=== PATIENT | male | born 1980 | race African-American/Black ===

== ENCOUNTER 2017-07-06 06:09 | Inpatient (IN) | payer OTHER ==
[~2017-07-06] VITALS: Ht 180.3 cm; Wt 106.6 kg
--- NOTE | 2017-07-06 06:30 | RAD ---
CT Head W/O Contrast: History: slurred speech, left arm numbness
code stroke
no previous for comparison Comparison: none Axial images were obtained without contrast. The craven and white matter appears normal and symmetrical for the patients age. There is no mass effect, extraaxial fluid collections or hydrocephalus. There is no gross bleed. There is no focal loss of craven-white matter distinction to suggest acute ischemia, i.e. stroke. Impression: No acute findings. These results were called to the Emergency Department and verified by read back at the time of dictation. PQRS Compliance Statement: One or more of the following individualized dose reduction techniques were utilized for this examination: 1. Automated exposure control 2. Adjustment of the mA and/or kV according to patient size 3. Use of iterative reconstruction technique Electronically signed by: Benjie Tate III, MD (07/06/2017 6:26 AM) [facility]
[2017-07-06 07:02] LABS: BASO # 0.1 x10^3/uL (0.0-0.2); BASO % 1 % (0-3); EOS # 0.1 x10^3/uL (0.0-0.7); EOS % 1 % (0-3); HEMOGLOBIN 13.2 g/dL (13.0-17.5); LYMPH # 1.4 x10^3/uL (1.0-4.8); LYMPH % 23 % (24-48); MEAN CORPUSCULAR HEMOGLOBIN 29 pg (25-35); MEAN CORPUSCULAR HGB CONC 33 g/dL (31-37); MEAN CORPUSCULAR VOLUME 87 fL (79-100); MONO # 0.4 x10^3/uL (0.0-1.1); MONO % 7 % (0-9); NEUT # 4.1 x10^3uL (1.8-7.7); NEUT % 68 % (31-73); PLATELET COUNT 211 x10^3/uL (140-400); RED BLOOD COUNT 4.57 x10^6/uL (4.30-5.70); RED CELL DISTRIBUTION WIDTH 13.6 % (11.5-14.5); WHITE BLOOD COUNT 6.1 x10^3/uL (4.0-11.0)
[2017-07-06 07:22] LABS: ALBUMIN 3.7 g/dL (3.4-5.0); ALBUMIN/GLOBULIN RATIO 0.9 (1.0-1.7); CALCIUM 9.2 mg/dL (8.5-10.1); CREATININE 1.4 mg/dL (0.7-1.3); POTASSIUM 3.3 mmol/L (3.5-5.1); TOTAL BILIRUBIN 0.9 mg/dL (0.2-1.0); TOTAL PROTEIN 7.7 g/dL (6.4-8.2)
[2017-07-06 08:02] LABS: BARBITURATES NEG (NEG); BENZODIAZEPINES NEG (NEG); CANNABINOIDS NEG (NEG); COCAINE NEG (NEG); METHADONE NEG (NEG); OPIATES NEG (NEG); PHENCYCLIDINE NEG (NEG)
[2017-07-06 08:03] LABS: AMPHETAMINE/METHAMPHETAMINE NEG (NEG)
[2017-07-06 08:25] LABS: BACTERIA,URINE 0 /HPF (0-FEW); BILIRUBIN,URINE NEG (NEG); CLARITY,URINE CLEAR; COLOR,URINE STRAW; GLUCOSE,URINE NEG (NEG); NITRITE,URINE NEG (NEG); RBC,URINE 0 /HPF (0-2); SQUAMOUS EPITHELIAL CELL,UR OCC /LPF; UROBILINOGEN,URINE 0.2 mg/dL (0.2 mg/dL); WBC,URINE 0 /HPF (0-4)
--- NOTE | 2017-07-06 08:25 | RAD ---
PA and lateral chest radiograph. History: Chest pressure. Comparison: None. Findings: Cardiomediastinal silhouette is within normal limits for size. Bilateral lung marcos appear clear without evidence of infiltrate, effusion, or pneumothorax. Impression: 1. No acute cardiopulmonary process. Electronically signed by: Hayder Rios MD (07/06/2017 8:22 AM) [place] [id number]
[2017-07-06] MEDS ORDERED: IOHEXOL 300 MG/ML 75 ML VIAL. IV ONE ×2 (08:50→09:20)
--- NOTE | 2017-07-06 09:41 | RAD ---
CTA chest with contrast 07/06/2017 CLINICAL INDICATION: Chest pressure, elevated d-dimer. COMPARISON: Two-view chest 07/06/2017 TECHNIQUE: Multiple CTA images of the chest were obtained following intravenous ministration of 75 mL Omnipaque 300. Additional images were not diagnostic and subsequently additional 75 mL of Omnipaque 300 was injected intravenously MIPS were obtained the chest. *One or more of the following individualized dose reduction techniques were utilized for this examination: 1. Automated exposure control. 2. Adjustment of the mA and/or kV according to patient size. 3. Use of iterative reconstruction technique. FINDINGS: Heart size is normal without significant pericardial effusion. The thoracic aorta is normal in caliber. No central or major segmental pulmonary arterial filling defect to suggest pulmonary embolism. No axillary, mediastinal or hilar lymphadenopathy. The central airways are patent. No pleural effusion, pneumothorax or focal consolidation. There is minimal linear atelectasis or scarring in the superior segment of the right lower lobe. There are no destructive osseous lesions. Limited images of the upper abdomen: Grossly unremarkable. IMPRESSION: No CT evidence of pulmonary embolism. Electronically signed by: Brett Pascal MD (07/06/2017 9:37 AM) [id number]
--- NOTE | 2017-07-06 10:30 | PHYS DOC ---
Past History Past Medical History: Schizophrenia, Other Past Surgical History: No Surgical History Alcohol Use: None Drug Use: None Adult General Chief Complaint Chief Complaint: WEAKNESS/GENERALIZED HPI HPI Patient is a 36 year old M who presents with weakness, slurred speech and numbness. Travis states that prior to going to bed at 2 AM this morning he noticed tingling in his left arm. When he woke up at 5 AM he noticed numbness in his left arm and left leg, moderate weakness in his left arm and left leg, significant difficulty speaking associated with facial droop, and pain behind his right eye. He was immediately brought to the emergency room and his symptoms gradually improved thereafter. He has no history of stroke. His only history is psychiatric. His only medications BuSpar. Review of Systems Review of Systems Constitutional: Denies fever or chills [] Eyes: Denies change in visual acuity, redness, or eye pain [] HENT: Denies nasal congestion or sore throat [] Respiratory: Denies cough or shortness of breath [] Cardiovascular: No additional information not addressed in HPI [] GI: Denies abdominal pain, nausea, vomiting, bloody stools or diarrhea [] : Denies dysuria or hematuria [] Musculoskeletal: Denies back pain or joint pain [] Integument: Denies rash or skin lesions [] Neurologic: Denies headache Endocrine: Denies polyuria or polydipsia [] All other systems were reviewed and found to be within normal limits, except as documented in this note. Family History Family History No pertinent family medical history reported Current Medications Current Medications BuSpar Current Medications Medications (Trade) Dose Ordered Sig/[facility] Start Time Stop Time Status Last Admin Dose Admin Iohexol (Omnipaque 300 Mg/ml) 75 ml 1X ONCE 07/06/17 09:20 07/06/17 09:21 DC Allergies Allergies Allergies Coded Allergies Type Severity Reaction Last Updated Verified No Known Drug Allergies 08/05/13 No Physical Exam Physical Exam Constitutional: Well developed, well nourished, no acute distress, non-toxic appearance. [] HENT: Normocephalic, atraumatic, bilateral external ears normal, oropharynx moist, no oral exudates, nose normal. [] Eyes: EOMI, conjunctiva normal, no discharge. [] Neck: Normal range of motion, no tenderness, supple, no stridor. [] Cardiovascular:Heart rate regular rhythm, no murmur [] Lungs & Thorax: Bilateral breath sounds clear to auscultation [] Abdomen: Bowel sounds normal, soft, no tenderness, no masses, no pulsatile masses. [] Skin: Warm, dry, no erythema, no rash. [] Back: No tenderness, no CVA tenderness. [] Extremities: No tenderness, no cyanosis, no clubbing, ROM intact, no edema. [] Neurologic: Alert and oriented X 3, initial exam revealed sensory deficits in the left upper extremity and lower extremity associated with moderate weakness on the left compared to the right 3/5, minimal facial droop was noted, significant slurred speech was noted. Psychologic: Affect normal, judgement normal, mood normal. [] Current Patient Data Vital Signs Vital Signs Date Time Temp Pulse Resp B/P (MAP) Pulse Ox O2 Delivery O2 Flow Rate FiO2 07/06/17 06:10 98.9 89 20 97 Room Air Lab Results Laboratory Tests Test 07/06/17 06:40 07/06/17 07:35 White Blood Count 6.1 x10^3/uL (4.0-11.0) Red Blood Count 4.57 x10^6/uL (4.30-5.70) Hemoglobin 13.2 g/dL (13.0-17.5) Hematocrit 40.0 % (39.0-53.0) Mean Corpuscular Volume 87 fL (79-100) Mean Corpuscular Hemoglobin 29 pg (25-35) Mean Corpuscular Hemoglobin Concent 33 g/dL (31-37) Red Cell Distribution Width 13.6 % (11.5-14.5) Platelet Count 211 x10^3/uL (140-400) Neutrophils (%) (Auto) 68 % (31-73) Lymphocytes (%) (Auto) 23 % (24-48) L Monocytes (%) (Auto) 7 % (0-9) Eosinophils (%) (Auto) 1 % (0-3) Basophils (%) (Auto) 1 % (0-3) Neutrophils # (Auto) 4.1 x10^3uL (1.8-7.7) Lymphocytes # (Auto) 1.4 x10^3/uL (1.0-4.8) Monocytes # (Auto) 0.4 x10^3/uL (0.0-1.1) Eosinophils # (Auto) 0.1 x10^3/uL (0.0-0.7) Basophils # (Auto) 0.1 x10^3/uL (0.0-0.2) D-Dimer (Ashley) 0.50 mg/L (0.00-0.50) Sodium Level 141 mmol/L (136-145) Potassium Level 3.3 mmol/L (3.5-5.1) L Chloride Level 104 mmol/L (98-107) Carbon Dioxide Level 29 mmol/L (21-32) Anion Gap 8 (6-14) Blood Urea Nitrogen 9 mg/dL (8-26) Creatinine 1.4 mg/dL (0.7-1.3) H Estimated GFR (Cockcroft-Gault) 69.0 BUN/Creatinine Ratio 6 (6-20) Glucose Level 104 mg/dL (70-99) H Calcium Level 9.2 mg/dL (8.5-10.1) Total Bilirubin 0.9 mg/dL (0.2-1.0) Aspartate Amino Transferase (AST) 23 U/L (15-37) Alanine Aminotransferase (ALT) 22 U/L (16-63) Alkaline Phosphatase 67 U/L (46-116) Creatine Kinase 237 U/L (39-308) Creatine Kinase MB (Mass) 0.5 ng/mL (0.0-3.6) Creatine Kinase MB Relative Index 0.2 % (0-4) Troponin I Quantitative < 0.017 ng/mL (0-0.055) Total Protein 7.7 g/dL (6.4-8.2) Albumin 3.7 g/dL (3.4-5.0) Albumin/Globulin Ratio 0.9 (1.0-1.7) L Urine Collection Type Unknown Urine Color Straw Urine Clarity Clear Urine pH 6.5 Urine Specific [place] <=1.005 Urine Protein Neg (NEG-TRACE) Urine Glucose (UA) Neg mg/dL (NEG) Urine Ketones (Stick) Neg mg/dL (NEG) Urine Blood Neg (NEG) Urine Nitrite Neg (NEG) Urine Bilirubin Neg (NEG) Urine Urobilinogen Dipstick 0.2 mg/dL (0.2 mg/dL) Urine Leukocyte Esterase Neg (NEG) Urine RBC 0 /HPF (0-2) Urine WBC 0 /HPF (0-4) Urine Squamous Epithelial Cells Occ /LPF Urine Bacteria 0 /HPF (0-FEW) Urine Opiates Screen Neg (NEG) Urine Methadone Screen Neg (NEG) Urine Barbiturates Neg (NEG) Urine Phencyclidine Screen Neg (NEG) Urine Amphetamine/Methamphetamine Neg (NEG) Urine Benzodiazepines Screen Neg (NEG) Urine Cocaine Screen Neg (NEG) Urine Cannabinoids Screen Neg (NEG) Urine Ethyl Alcohol Neg (NEG) EKG EKG Normal sinus rhythm Radiology/Procedures Radiology/Procedures Head CT - negative per radiology report CT angiogram chest - no acute disease per radiology report Course & Med Decision Making Course & Med Decision Making Pertinent Labs and Imaging studies reviewed. (See chart for details) Travis's symptoms rapidly improved after initial evaluation. 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 His speech was normal. No other neurologic deficits were noted. Dragon Disclaimer Dragon Disclaimer This electronic medical record was generated, in whole or in part, using a voice recognition dictation system. Departure Departure: Impression: Primary Impression: TIA (transient ischemic attack) Disposition: ADMITTED INPATIENT Condition: STABLE Referrals: PCP,NO (PCP) Problem Qualifiers Primary Impression: TIA (transient ischemic attack) Transient cerebral ischemia type: unspecified Qualified Codes: G45.9 - Transient cerebral ischemic attack, unspecified MILTON GRUBER MD Jul 06, 2017 10:29
--- NOTE | 2017-07-06 10:35 | EKG ---
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
[2017-07-06 12:29] VITALS: BP 118/76
[2017-07-06] MEDS ORDERED: BUSP10TA PO (13:02)
--- NOTE | 2017-07-06 14:00 | HP ---
ADMIT DATE: 07/06/2017 HISTORY OF PRESENT ILLNESS: The patient is a 36-year-old -[place] male patient who is currently an inmate who has been incarcerated for almost 10 years now and who apparently woke up complaining of weakness on the left side with altered sensation in his left side. He has also slurring speech and drooping on the left side, witnessed by one of the guards at around 05:25 and he also complained of floaters in his left eye and chest heaviness. By the time he arrived to the Emergency Room about 06:40, most of his symptoms have subsided. He was able to talk; however, he continued to have altered sensation on the left side of his face and left upper extremity. He denied any headache, denied any nausea, vomiting. He was evaluated in the Emergency Room. His lab work showed hypokalemia, slightly impaired kidney function. His D-dimer was slightly elevated. No blood pressure actually was measured in the Emergency Room to see whether he was hypertensive or hypotensive. He has had a CT scan done, which showed no evidence of any intracranial pathology and because of elevated D-dimer, he has had a CT scan of the chest with PE protocol, which showed no evidence of pulmonary embolism, was admitted for further evaluation. We did consult Dr. Puentes. PAST MEDICAL HISTORY: He apparently is known to have schizophrenia and has been on BuSpar. PAST SURGICAL HISTORY: Significant for hemorrhoidectomy. ALLERGIES: He has no known drug allergies. MEDICATIONS: He is currently on no medication, although he said he was on BuSpar. FAMILY HISTORY: He has 6 brothers and 1 sister, all older except one brother. He does not know of any medical problems. His father in his 60s, does not know why he . Mother is still alive at age of 62 and is seemingly healthy. SOCIAL HISTORY: He is single, has one daughter that he knew of, but that he might have more children than he account for, used to be a smoker, smoked from the age of 15 to the age of 21. 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 REVIEW OF SYSTEMS: The patient denied any blurring of vision, although he said to have some what he describes as floaters. Denied any earache, tinnitus or sensorineural deafness. Denied any nosebleeds, stuffy nose or postnasal drip. Denied any sore throat, sore tongue, toothache, hoarseness of voice, although did complain of difficulty swallowing and drooping of the left side of the face. Denied any nausea, vomiting, diarrhea or constipation. Denied any hematemesis, melena or hematochezia. Denied any dysuria, frequency or hematuria. He did complain of chest heaviness, described as a heavy weight on his chest. Denied any cough, phlegm or hemoptysis. Denied any dizziness, lightheadedness, or vertigo. Denied any chills, rigors or fever. PHYSICAL EXAMINATION: GENERAL: On arrival to the Emergency Room, he looked well and was clearly in no apparent respiratory distress, slightly pale, but no jaundice, cyanosis, or thyromegaly. No jugular venous distension. No lower limb edema. VITAL SIGNS: Heart rate was 89. Unfortunately, no blood pressure was measured in the Emergency Room, his respiratory rate was 20, oxygen saturation was 97% on room air and temperature was 98.9. HEENT: Showed normocephalic, atraumatic. NECK: Supple. HEART: Showed normal first and second heart sounds. No gallop, rub or murmur. CHEST: Showed central trachea, equal bilateral expansion, air entry, vesicular sounds. No crepitation or rhonchi. ABDOMEN: Distended, soft, nontender. No guarding or rigidity. No organomegaly. All hernial orifices intact. Bowel sounds normal. NEUROLOGIC: He was awake, alert, responding appropriately. All cranial nerves intact. He definitely has some, according to him, altered sensation in the left side of face and left upper extremity. His strength is about 4/5 in the left upper extremity and was 5/5 in the right upper extremity. Both lower extremities showed a strength of 5/5. There is no evidence of cerebellar dysfunction and Romberg's test was negative. LABORATORY DATA: In the Emergency Room showed a white cell count of 6100, hemoglobin 13, hematocrit 40, MCV 87 and platelet count of 211,000. His chemistry showed a serum sodium 141, potassium 3.3, chloride 104, bicarbonate 29, anion gap of 8, BUN 9, creatinine 1.4, estimated GFR was 69 mL per minute, his glucose 104, calcium was 9.2. Total bilirubin, AST, ALT, alkaline phosphatase were normal. Total protein was 7.7, albumin was 3.7. His D-dimer was 0.5 mg/dL. Urinalysis showed the urine was straw colored, clear with a pH of 6.5, specific gravity 1.005. The urine was negative for protein, glucose, ketones, blood, nitrite and leukocyte esterase. There are no rbc's, no wbc's and no bacteria and urine toxicology screen was negative for opiates, methadone, barbiturates, phencyclidine, methamphetamine, amphetamine. He is also negative for benzodiazepine, cocaine, cannabinoids, and ethyl alcohol. IMPRESSION: In summary, this is a 36-year-old male patient who presented with left-sided weakness together with tingling and numbness, has also left-sided facial droop, difficulty swallowing. His symptoms started when he woke up around 05:25. The symptoms have largely disappeared by the time he arrived to the Emergency Room at around 06:40. He had a CT scan of the head, which basically showed the craven and white matter, appears normal and symmetrical for the patient's age. There is no mass effect, extraaxial fluid collection or hydrocephalus. There is no gross bleed. There is no focal loss of levy white matter to suggest acute ischemia. His chest x-ray was basically unremarkable with no acute cardiopulmonary process and CT scan of the chest showed that the heart size is normal without significant pericardial effusion. The thoracic aorta is normal in caliber. No central or major segmental pulmonary arterial filling defect is present and so there are no central or major segmental pulmonary arterial filling defects suggest pulmonary embolism, axillary, mediastinal or hilar lymphadenopathy. The central airways are patent. No pleural effusion, pneumothorax or focal consolidation. There is minimal linear atelectasis or scarring in the superior segment of the right lower lobe and there are no destructive masses or lesions. The patient was admitted to the floor on telemetry bed. He continued to have some altered sensation on the left side of face and left upper extremity. He has also some weakness in his left upper extremity, compared to the left lower extremity. There is no evidence of any cerebellar dysfunction and Romberg test was negative. PLAN: My plan is to consult Dr. Puentes and also arrange to have bilateral Doppler ultrasound as well as fasting lipid profile. OBDULIA LOPEZ MD DR: Héctor JOB#: [id number] / [id number]
[2017-07-06 15:53] VITALS: BP 150/79
[2017-07-06] MEDS ORDERED: ASPIRIN 81 MG TAB.CHEW PO SCH (18:00)
[2017-07-06 19:24] VITALS: BP 118/69
[2017-07-06] MEDS: busPIRone 10 MG TABLET. PO SCH (20:56)
[2017-07-06 22:26] VITALS: BP 118/75
[2017-07-07 06:07] VITALS: BP 119/74
[2017-07-07 06:54] LABS: HEMATOCRIT 40.4 % (39.0-53.0); HEMOGLOBIN 13.3 g/dL (13.0-17.5); RED BLOOD COUNT 4.61 x10^6/uL (4.30-5.70); RED CELL DISTRIBUTION WIDTH 13.4 % (11.5-14.5); WHITE BLOOD COUNT 5.4 x10^3/uL (4.0-11.0)
[2017-07-07 07:00] LABS: ALBUMIN 3.4 g/dL (3.4-5.0); ALBUMIN/GLOBULIN RATIO 0.9 (1.0-1.7); C REACTIVE PROTEIN 1.3 mg/L (0-3.3); CREATININE 1.3 mg/dL (0.7-1.3); GFR 75.2; POTASSIUM 3.7 mmol/L (3.5-5.1); TOTAL PROTEIN 7.4 g/dL (6.4-8.2)
--- NOTE | 2017-07-07 07:31 | RAD ---
Carotid ultrasound, 07/06/2017: History: Left-sided weakness Duplex evaluation of the carotid arteries in neck was performed including grayscale, color-flow and spectral Doppler analysis. No significant focal atherosclerotic plaque formation is identified. The peak systolic velocity in the right internal carotid artery is 46 cm/s with an end-diastolic velocity of 11 cm/s and an internal carotid to common carotid artery ratio of 0.9. On the left, the peak systolic velocity in the internal carotid artery is 35 cm/s with an end-diastolic velocity of 16 cm/s and an internal carotid to common carotid artery ratio 1.1. These Doppler findings do not suggest significant stenosis. Antegrade flow is present in both vertebral arteries in the neck. IMPRESSION: No duplex evidence of a significant carotid stenosis in the neck. Note: Stenosis calculations for CTA, MRA and conventional angiography are based upon determination of the distal ICA diameter in accordance with the NASCET methodology. Stenosis calculations for Doppler studies are derived from validated velocity criteria which are known to correlate with NASCET methodology of determining stenosis.
--- NOTE | 2017-07-07 08:04 | CONS ---
DATE OF CONSULTATION: 07/06/2017 REFERRING PHYSICIAN: Dr. Rankin REASON FOR CONSULTATION: Rule out TIA. HISTORY OF PRESENT ILLNESS: This is a 36-year-old -[place] male who is an inmate, was admitted through Emergency Room after he presented with new onset of left-sided weakness, numbness, and paresthesia associated with slurred speech and intermittent right-sided headaches along with blurred vision The patient woke up this morning at 5:25 complaining of the above symptoms and floaters in his left eye along with chest pain described as a heaviness. On arrival to Emergency Room at 6:40, the symptoms have somewhat subsided and the patient was able to talk. His left-sided numbness including the face, upper and lower extremities have slightly improved. Initial nonenhanced head CT scan revealed no evidence of acute intracranial process. Currently, the patient stated his headache is mild and his left side is normal. He denies diplopia, dysphagia, or dysarthria at the time of evaluation. PAST MEDICAL HISTORY: Significant for schizophrenia and possible anxiety. SOCIAL HISTORY: The patient is single. He has 1 daughter. He is currently not a smoker. He drinks alcohol occasionally. He had smoked marijuana in the past. FAMILY HISTORY: His father at age of 60s, unknown cause. His mother is 62 and alive. He has 6 brothers and 1 sister. CURRENT MEDICATIONS: BuSpar. ALLERGIES: No known drug allergies. REVIEW OF SYSTEMS: A 10-point review of system was performed as mentioned above in history of present illness consistent with intermittent numbness and weakness of the left side with intermittent blurred vision and slurred speech, otherwise as mentioned above in history of present illness. PHYSICAL EXAMINATION: GENERAL: Well-developed, well-nourished -Emir[place] male, not in acute distress. He weighs 233 pounds, height 71 inches. VITAL SIGNS: Blood pressure 150/79, respiratory rate 18, pulse 71, temperature 99.2, oxygen saturation is 97% on room air. HEENT: Normocephalic, atraumatic, otherwise unremarkable. NECK: Supple. Negative for carotid bruit, lymphadenopathy or thyromegaly. CHEST: Clear to A and P. CARDIOVASCULAR: Regular rate and rhythm, normal S1, S2. There is no S3, S4 or murmur. ABDOMEN: Soft. Bowel sounds positive. EXTREMITIES: Negative for cyanosis, clubbing or pitting edema. NEUROLOGIC: 1. Mental Status: The patient is alert and oriented x 3. Speech is fluent. There is no language dysfunction. Memory, judgment, and abstract thinkings are normal. The patient denies hallucination or delusion. 2. Cranial nerves: Visual marcos are full. The pupils are reactive to light and accommodation. The extraocular movements are intact. There is no nystagmus. There is no facial motor or sensory deficit. Hearing is intact bilaterally. The palate is elevated symmetrically. Sternocleidomastoid muscles are powerful bilaterally. The patient shrugs his shoulders symmetrically, protrudes his tongue in the midline without fasciculation or atrophy. 3. Motor examination: No focal muscle bulk was seen. The tone is normal. The strength is 5/5 throughout. 4. Sensory examination revealed normal pinprick, light touch, vibratory and position senses. 5. Deep tendon reflexes are symmetric and active without pathologic responses. 6. Gait and coordination were normal. LABORATORY DATA: CBC revealed white blood cells of 6.1 thousand, hemoglobin 13.2, hematocrit 40, platelet count is 211,000. Chemistry revealed sodium of 141, potassium 3.3, chloride 104, CO2 29, BUN 9, creatinine 1.4, glucose is 104, calcium 9.2. Cardiac enzymes normal. Troponin level is less than 0.017. Urinalysis is negative for urinary tract infection. Urine drug screen is negative as well. D-dimer is borderline at 0.50. DIAGNOSTIC STUDIES: Initial nonenhanced CT scan revealed no evidence of acute intracranial process. CT angio was negative for pulmonary embolism and chest x-ray was unremarkable. IMPRESSION: 1. New onset of left-sided weakness and numbness and paresthesia with intermittent slurred speech and blurred vision with normal current neurological examination and normal nonenhanced head CT scan, etiology uncertain, suspicious of transient ischemic attack. 2. History of schizophrenia and possible anxiety disorder. RECOMMENDATIONS: 1. Continue with current management initiated by Dr. Rankin. 2. Await for carotid Doppler study. 3. Aspirin 81 mg p.o. daily. M Karla ESPANA MD DR: LISA/narciso JOB#: [id number] / [id number]
[2017-07-07] MEDS: busPIRone 10 MG TABLET. PO SCH (08:28)
[2017-07-07 11:08] VITALS: BP 111/72
[2017-07-07] MEDS ORDERED: ASPI-612 PO (12:30)
--- NOTE | 2017-07-07 20:21 | DS ---
DATE OF DISCHARGE: 07/07/2017 HOSPITAL COURSE: The patient is a 36-year-old male patient who came yesterday with a new onset of left-sided weakness, numbness and paresthesia associated with slurred speech and intermittent right-sided headache along with blurred vision. He was basically extensively investigated. Had noncontrasted CT scan which was unremarkable. Has bilateral carotid Doppler ultrasound, was negative. All his symptoms have completely resolved. He was seen in consultation by Dr. Puentes who recommended to start him on baby aspirin and that he can be discharged back. PHYSICAL EXAMINATION: GENERAL: When I saw him this afternoon, he looked well and was clearly in no apparent respiratory distress, pale, but no jaundice, cyanosis, or thyromegaly. No jugular venous distension. No limb edema. VITAL SIGNS: His heart rate was 83, blood pressure 111/72, temperature was 98.3, respiratory rate was 20, and oxygen saturation was 97%. HEAD, EYES, EARS, NOSE AND THROAT: Normocephalic, atraumatic. NECK: Supple. HEART: Showed normal first and second sounds. No gallop, rub or murmur. CHEST: Clear to auscultation. No crepitation or rhonchi. ABDOMEN: Distended, soft, nontender. NEUROLOGIC: He is awake, alert, responding appropriately. All cranial nerves intact. EXTREMITIES: He moves extremities without difficulty, ambulates without assistance or assistive devices. LABORATORY DATA: Showed a white cell count of 5400, hemoglobin 13.3, hematocrit 40, MCV 88 and platelet count of 206,000. His chemistry showed a serum sodium 139, potassium 3.7, chloride 104, bicarbonate 29, anion gap of 6, BUN 9, creatinine 1.3, estimated GFR was 75 mL per minute. His glucose was 99. Calcium was 9. Total bilirubin, AST, ALT, alkaline phosphatase were normal. Total protein was 7.4, albumin was 3.4. His sed rate was 3 mm per hour and C-reactive protein was 1.3 mg/L. His D-dimer was slightly elevated at 0.5. Urine toxicology was negative. Urinalysis was unremarkable. CT scan of the head showed no acute finding . Chest CT angio showed basically no central or major segmental pulmonary arterial filling defect to suggest pulmonary embolism. No axillary, mediastinal or hilar lymphadenopathy. The central airways are patent. No pleural effusion, pneumothorax or focal consolidation. There is minimal linear atelectasis or scarring in the superior segment of the right lower lobe. There are no destructive osseous lesions. The patient has had also bilateral Doppler ultrasound, which showed no duplex evidence of significant carotid stenosis in the neck, and there is antegrade flow present in both vertebral arteries in the neck. The patient was diagnosed with TIA with a complete resolution of his symptoms. Other medical problems include schizophrenia. He was discharged to continue BuSpar and baby aspirin. OBDULIA LOPEZ MD DR: JASPREET/narciso JOB#: [id number] / [id number]
--- NOTE | 2017-07-09 04:09 | PN ---
DATE: 07/07/2017 SUBJECTIVE: The patient denies any new medical or neurological complaints. He denies headaches, numbness or paresthesia of the left upper and lower extremities. OBJECTIVE: GENERAL: Well-developed, well-nourished -[place] male, not in acute distress. VITAL SIGNS: Blood pressure 111/72, respiratory rate 20, pulse is 83 and regular, temperature 98.3, oxygen saturation 97% on room air. HEENT: Normocephalic, atraumatic, otherwise unremarkable. NECK: Supple. Negative for carotid bruit, lymphadenopathy or thyromegaly. LUNGS: Clear to A and P. CARDIOVASCULAR: Regular rate and rhythm. Normal S1, S2. There is no S3, S4 or murmur. ABDOMEN: Soft. Bowel sounds positive. EXTREMITIES: Negative for cyanosis, clubbing or pitting edema. NEUROLOGICAL EXAM: Mental Status: The patient is alert and oriented x 3. The speech is fluent. There is no language dysfunction, otherwise, unremarkable. Motor Examination: No focal muscle bulk was seen. The tone is normal. The strength is 5/5 throughout. Sensory examination revealed normal pinprick, light touch, vibratory and position senses. Deep tendon reflexes were symmetric and active without pathologic responses. Gait and coordination are normal. DIAGNOSTIC DATA: Carotid Doppler study performed on 07/07/2017 revealed no evidence of acute carotid stenosis. IMPRESSION: 1. New onset of left-sided weakness and paresthesia with normal current neurological examination. The symptoms resolved. 2. Multiple psychiatric problems include anxiety and schizoaffective disorders. RECOMMENDATIONS: 1. Continue with current management initiated by Dr. Rankin. 2. Aspirin 81 mg p.o. daily. M Karla ESPANA MD DR: LISA/narciso JOB#: [id number] / [id number]
== END 2017-07-07 13:50 | disposition home or self-care (01) | DRG 69 ==
LOC: ER 06:09 → EEVIPCON 06:09 → UNDOADMIN 09:50 → 1 SOUTH 09:50
PROVIDERS: ADMIT Internal Medicine; ATTEND Internal Medicine
DX: G45.9 Transient cerebral ischemic attack, unspecified (principal); F20.9 Schizophrenia, unspecified; E87.6 Hypokalemia; Z87.891 Personal history of nicotine dependence; F12.90 Cannabis use, unspecified, uncomplicated; H53.8 Other visual disturbances; F41.9 Anxiety disorder, unspecified
CPT/HCPCS: 36415; 70450; 71046; 71275; 80053; 80061; 80307; 81001; 82553; 84484; 85025; 85027; 85379; 85651; 86140; 87641; 93005; 93880; Q9967; 99285-25; G0479